=== PATIENT | male | born 1950 | race Caucasian/White ===

== ENCOUNTER 2019-04-01 00:08 | Outpatient (CLI) | payer MEDICARE, OTHER ==
[2019-04-01 14:15] LABS: Bacteria/HPF None Seen HPF (None Seen); Hyaline Casts/LPF NONE SEEN LPF (0-3 Hyaline); RBC/HPF None Seen HPF (0-3); Squamous Epithelial 0-3 HPF (0-3); WBC/HPF None Seen HPF (0-3)
== END 2019-04-01 00:09 | disposition home or self-care (01) ==
LOC: LABBT 00:08
PROVIDERS: ATTEND Orthopaedic Surgery
DX: Z01.818 Encounter for other preprocedural examination (principal); M17.11 Unilateral primary osteoarthritis, right knee
CPT/HCPCS: 81015; 87081; 93005; 93010

== ENCOUNTER 2019-04-08 06:18 | Inpatient (IN) | payer MEDICARE, OTHER ==
[2019-04-01 13:33] VITALS: BMI 25.8
[2019-04-01 14:09] LABS: #Basophils 0.1 thou/uL (0.0-0.2); #Eosinphils 0.4 thou/uL (0.0-0.7); #Lymphocytes 2.1 thou/uL (1.20-3.40); #Monocytes 0.6 thou/uL (0.11-0.59); #Neutrophils 4.5 thou/uL (1.40-6.50); %Basophils 1.2 % (0.0-1.0); %Eosinophils 5.3 % (0.0-10.0); %Lymphocytes 27.3 % (21.0-51.0); %Monocytes 7.6 % (0.0-10.0); %Neutrophils 58.6 % (42.0-75.0); Hemoglobin 15.7 g/dL (14.0-18.0); Mean Corpuscular HGB CONC 33.3 g/dL (32.0-36.0); Mean Corpuscular Volume 95.9 fL (78.0-98.0); Mean Platelet Volume 7.7 fL (7.4-10.4); Platelet Count 172 thou/uL (130-400); RBC Distribution Width 12.8 % (11.5-14.5); White Blood Cell (WBC) Count 7.7 thou/uL (4.8-10.8)
[2019-04-01 14:16] LABS: Prothrombin Time 13.1 SEC (12.0-14.7)
[2019-04-01 14:30] LABS: Anion Gap 13 mmol/L (10-20); BUN (Urea Nitrogen) 13 mg/dL (8.4-25.7); Calc. Creatinine Clearance 0 mL/min (70-130); Calcium 9.8 mg/dL (7.8-10.44); Carbon Dioxide 27 mmol/L (23-31); Chloride 105 mmol/L (98-107); Estimated GFR-MDRD 86; Glucose 81 mg/dL (80-115); Potassium 3.9 mmol/L (3.5-5.1); Sodium 141 mmol/L (136-145)
[2019-04-08] MEDS ORDERED: Midazolam HCl 2 mg/2 ml Vial ONE (07:03)
[2019-04-08] MEDS ORDERED: Fentanyl 100 MCG/2 ML VIAL ONE ×4 (07:03→11:41)
[2019-04-08] MEDS ORDERED: Tranexamic Acid 1,000 MG/10 ML VIAL ONE ×2 (07:05→10:46)
[2019-04-08] MEDS ORDERED: Sodium Chloride 0.9% 100 ML ONE (07:05)
[2019-04-08] MEDS ORDERED: Vancomycin HCl 1.5 GM in Sodium Chloride 0.9% 250 ML 300 ML IVPB SCH ×2 (07:15→18:00)
[2019-04-08] MEDS ORDERED: Promethazine HCl 25 MG/ML VIAL IM PRN ×4 (07:50→12:11)
[2019-04-08] MEDS ORDERED: Ropivacaine HCl/PF 250 ML in Premix Bag 1 BAG NERVE BLCK SCH (07:50)
[2019-04-08] MEDS ORDERED: HYDROcodone/Acetaminophen 10/325 mg Tablet PO PRN ×2 (07:50)
[2019-04-08] MEDS ORDERED: Fentanyl 100 MCG/2 ML VIAL IV PRN (07:50)
[2019-04-08] MEDS ORDERED: Zolpidem Tartrate 5 MG TAB PO PRN ×3 (07:50→12:11)
[2019-04-08] MEDS ORDERED: traMADol HCl 50 MG TAB PO PRN ×2 (07:50)
[2019-04-08] MEDS ORDERED: Ondansetron PF 4 MG/2 ML Vial IVP PRN ×3 (07:50→12:11)
[2019-04-08] MEDS ORDERED: Bupivacaine PF 0.5% 30 ML VIAL ONE (08:09)
[2019-04-08] MEDS ORDERED: diphenhydrAMINE 25 MG CAP PO PRN ×2 (10:16→12:11)
[2019-04-08] MEDS ORDERED: Acetaminophen 325 MG TAB PO PRN (10:16)
[2019-04-08] MEDS ORDERED: Tranexamic Acid 1,000 MG in Sodium Chloride 0.9% 100 ML IVPB SCH (10:30)
[2019-04-08] MEDS ORDERED: Morphine Sulfate 2 MG/ML SYRINGE SLOW IVP PRN (10:32)
[2019-04-08] MEDS ORDERED: PACU-Morphine 4MG/ML VIAL SLOW IVP PRN (10:32)
[2019-04-08] MEDS ORDERED: Promethazine HCl 25 MG/ML VIAL SLOW IVP PRN (10:32)
[2019-04-08] MEDS ORDERED: HYDROmorphone 2 MG/ML VIAL SLOW IVP PRN (10:32)
[2019-04-08] MEDS ORDERED: Ondansetron HCl/PF 4 MG/2 ML Vial IVP PRN (10:32)
[2019-04-08] MEDS ORDERED: Meperidine HCl/PF 25 MG/ML VIAL SLOW IVP PRN (10:32)
--- NOTE | 2019-04-08 10:44 | RAD ---
EXAM: 2 views of the right knee HISTORY: Knee pain COMPARISON: None FINDINGS: A small knee effusion is seen. The patient is status post right knee arthroplasty without a pparent hardware lucency or fracture. Air in the soft tissues is from recent surgery. IMPRESSION: Status post right knee arthroplasty without evidence of complication.
[2019-04-08] MEDS ORDERED: Ketorolac Tromethamine 30 MG/ML VIAL ONE (11:16)
[2019-04-08] MEDS ORDERED: diphenhydrAMINE 50 MG/ML VIAL IM PRN (12:11)
[2019-04-08] MEDS ORDERED: fentaNYL Citrate/PF 2,000 MCG in Sodium Chloride 0.9% 60 ML IV PRN (12:11)
[2019-04-08] MEDS ORDERED: Naloxone HCl 0.4 mg/ml Vial IV PRN (12:11)
[2019-04-08] MEDS ORDERED: diphenhydrAMINE 50 MG/ML VIAL IVP PRN (12:11)
[2019-04-08] MEDS ORDERED: Communication Order-Pharmacy FS SCH (12:15)
--- NOTE | 2019-04-08 12:25 | OP ---
DATE OF PROCEDURE: 04/08/2019 PREOPERATIVE DIAGNOSIS: Right knee rheumatoid arthritis. POSTOPERATIVE DIAGNOSIS: Right knee rheumatoid arthritis. PROCEDURE PERFORMED: Right total knee replacement using [employer] pinless navigation. NETWORK SUPPORT ADMINISTRATOR: Lalit Li MD and Eduin Rowley PA-C. COMPLICATIONS: None. The patient had general anesthetic as well as a block. IMPLANTS: [employer] Triathlon knee system. We used a size 6 posterior-stabilized femur. We used a size 5 primary tibial base plate. We used a 5 x 16 mm posterior-stabilized tibial insert and a 35 x 10 asymmetric X3 patella. He did go to recovery room in stable condition. INDICATIONS: This is a 68-year-old male, who has a rheumatoid arthritis, on multiple medications for this. At this time, his pain and discomfort has gotten so great, he wished to have his knee replaced. DESCRIPTION OF PROCEDURE: After all appropriate consent forms were explained and signed, he was taken back to the operating room, and at this time, he was given general anesthetic. Once the level of anesthesia was appropriate, a tourniquet was placed on the right thigh and leg was then prepped draped in standard surgical fashion. Limb was exsanguinated and tourniquet taken up to 300 mmHg. Midline incision was made with a 10-blade down through the skin. Bovie was used to coagulate any brisk venous bleeding. New blade was used to make a medial parapatellar arthrotomy. At this time, medial tissue release was done of the proximal tibia. Excess fat pad was removed, and at this time, a copious amount of synovium was removed. Hemostasis was meticulously achieved at this time. A large bony osteophytes were removed with a rongeur, and at this time, the knee was flexed up. The guide was applied. The femur was navigated and a femoral cut was made in 5 degrees of flexion with 9 and 8 mm being taken off the distal femoral condyles respectively. Once this was done, the sizing jig was placed in 3 degrees of external rotation and pinned in place. Size 6 femur was decided upon. A 4-in-1 cutting blocks were applied and pinned. Anterior-posterior chamfer cuts were made. All excess bone spurs were removed at this time. We then turned our attention to the tibia. The posterior PCL retractor was placed behind the tibia to expose the tibia. We then pinned the navigation guide in place and navigated our tibia. The cutting guide was set so that we took 11 mm off the lateral tibial plateau and more -6 mm from our deepest point medially. At this time, the saw cut was performed. We then removed the medial osteophytes off the tibia, essentially removing nearly all the low spot that was not taken off with a saw. We then placed our spreaders, removing all remaining meniscal tissue and a curved osteotome was used to remove posterior osteophytes off the femur. Once this was done, we did place a size 6 and decided this was too big placing a size 5. We were able to place the tibial tray directly in the central portion of the tibia with everything supported. Therefore, this was pinned in place using a long alignment han to achieve correct rotation, and we then trialed our different plastics. At this time, 13 plastic was felt to be a little bit too loose, but we decided we would also need to perform a posterior-stabilized femur. Therefore, at this time, the posterior-stabilized guide was applied to the femur, centralizing this on the cut femur. This was pinned in place. The osteotome was placed through the guide and a saw was used to saw medial and lateral to make our box. The bone and soft tissue were removed, and at this time, a trial size 6 PS femur was placed and size 5 tibial base plate was already pinned in place and we decided upon a 16 mm plastic, which gave us full extension and excellent stability through range of motion. At this time, two towel clips and a saw were used to cut our patella. A 35 x 10 mm asymmetric patella was decided upon. The holes were drilled. We then trialed this. Our patella sat nicely in the trochlear groove through full range of motion. At this time, we then removed our patella, removed our femur. We then punched our tibia. We then thoroughly irrigated and dried the knee joint while the cement was mixed on the back table. We then applied our tibial base plate, our femoral prosthesis, and our 16 mm PS plastic in that order. The knee was put out in full extension while the cement dried. All excess bone cement was removed. A 35 x 10 patella was then cemented in place, again was held in place with all excess cement being removed. Once this was done, we thoroughly irrigated and dried our knee. We then placed multiple #2 Vicryl sutures, followed by a running Stratafix. We then used 2-0 and 3-0 Stratafix, followed by Surgicel skin glue on top of the skin. Bulky sterile dressing was then applied. The patient was then awakened and taken to recovery room in stable condition. All counts were correct at the end of the case, and he did receive preoperative IV antibiotics. Job ID: [id number]
[2019-04-08] MEDS ORDERED: hydrALAZINE 20 MG/ML VIAL SLOW IVP PRN (15:56)
[2019-04-08] MEDS: Sodium Chloride 0.9% 1,000 ML IV SCH ×2 (16:09→18:35)
[2019-04-08] MEDS: Ketorolac Tromethamine 30 MG/ML VIAL IVP SCH ×3 (16:10→23:22)
[2019-04-08] MEDS: CEFAZOLIN 2 GM in Premix Bag 1 BAG IVPB SCH ×2 (16:12→23:22)
[2019-04-08] MEDS ORDERED: Ropivacaine 0.5% HCl/PF (150 MG/30 ML VIAL) ONE (16:25)
[2019-04-08] MEDS ORDERED: Ropivacaine 0.2% HCl/PF (40 MG/20 ML VIAL) ONE (16:25)
[2019-04-08] MEDS ORDERED: Lidocaine 1% PF 5 ML VIAL ONE (17:16)
[2019-04-08] MEDS ORDERED: Dexamethasone 20 MG/5 ML VIAL ONE (17:16)
[2019-04-08] MEDS ORDERED: PROPOFOL 200 MG/20 ML VIAL ONE (17:16)
[2019-04-08] MEDS ORDERED: Ondansetron PF 4 MG/2 ML Vial ONE (17:16)
[2019-04-08] MEDS ORDERED: ePHEDrine 50 MG/ML VIAL ONE (17:16)
--- NOTE | 2019-04-08 17:52 | CON ---
DATE OF CONSULTATION: 04/08/2019 PRIMARY CARE PROVIDER: Dr. Mehrdad Prater. REASON FOR CONSULTATION: Management of medical comorbidities. HISTORY OF PRESENT ILLNESS: Mr. Carrasco is a pleasant 68-year-old gentleman, who was seen at [facility] on April 08, 2019. Earlier today, he underwent right total knee replacement for right knee rheumatoid arthritis. He was seen by hospitalist service for management of medical comorbidities. He denies any chest pain or shortness of breath. He denies any fevers or chills. He denies any nausea or vomiting. He reports that the pain in the right knee is better. REVIEW OF SYSTEMS: All other systems reviewed and found to be negative. PAST MEDICAL HISTORY: Hypertension, arthritis, anxiety, and depression. PAST SURGICAL HISTORY: Right total knee replacement on April 08, 2019. SOCIAL HISTORY: The patient denies any history of tobacco use, alcohol use, or recreational drug use. FAMILY HISTORY: No family history of coronary artery disease. ALLERGIES: NO KNOWN DRUG ALLERGIES. HOME MEDICATIONS: 1. Abilify 5 mg daily. 2. Vitamin D3 5000 units daily. 3. Hydroxyzine 50 mg as needed. 4. Lisinopril 10 mg daily. PHYSICAL EXAMINATION: GENERAL: On examination, Mr. Carrasco is awake and alert, not in acute distress. VITAL SIGNS: Stable. EYES: No scleral icterus, no conjunctival pallor. ENT: Moist mucosal membranes. No oropharyngeal erythema or exudates. NECK: Supple, nontender, trachea is midline. RESPIRATORY: Accessory muscles of breathing are not active. Chest wall movements are symmetric bilaterally. LUNGS: Clear to auscultation without wheeze, rhonchi, or crepitations. CARDIOVASCULAR: S1 and S2 are heard, regular. Peripheral pulses palpable. ABDOMEN: Soft, nontender, bowel sounds heard. NEUROLOGIC: Cranial nerves 2 through 12 are intact. MUSCULOSKELETAL: Rheumatoid arthritic changes in the hands. Status post right knee surgery. SKIN: No rashes or subcutaneous nodules. LYMPHATIC: No cervical lymphadenopathy. PSYCHIATRIC: Normal mood, normal affect, the patient is oriented to person, place, and time. LABORATORY DATA: Mr. Medleys labs and investigations were reviewed. On April 01, 2019, he had an unremarkable CBC, INR 1.0, and normal chem 7. ASSESSMENT AND PLAN: Mr. Carrasco is a pleasant 68-year-old gentleman, who was seen at [facility] on April 08, 2019. His problem list includes: 1. Hypertension: Mr. Carrasco has a history of hypertension. We will continue lisinopril. We will add p.r.n. hydralazine for blood pressure spikes. 2. Depression: Mild, stable, continue Abilify. 3. Arthritis: Status post right knee surgery. 4. Pain management and DVT prophylaxis per Orthopedic Surgery Service. Many thanks for allowing me to participate in the patient's care. Please feel free to contact me with any questions or concerns. LEVEL OF RISK: Moderate. LEVEL OF COMPLEXITY: Moderate. Job ID: [id number]
[2019-04-08] MEDS: Aspirin 81 mg Enteric Coated Tablet PO SCH (21:09)
[2019-04-09 05:26] LABS: Hemoglobin 12.1 g/dL (14.0-18.0); Mean Corpuscular HGB CONC 33.7 g/dL (32.0-36.0); Mean Corpuscular Hemoglobin 32.4 pg (27.0-31.0); Mean Corpuscular Volume 95.9 fL (78.0-98.0); Mean Platelet Volume 7.7 fL (7.4-10.4); Platelet Count 134 thou/uL (130-400); RBC Distribution Width 12.2 % (11.5-14.5); Red Blood Cell (RBC) Count 3.74 mill/uL (4.70-6.10); White Blood Cell (WBC) Count 9.5 thou/uL (4.8-10.8)
[2019-04-09] MEDS: Ketorolac Tromethamine 30 MG/ML VIAL IVP SCH ×4 (06:28→23:30)
[2019-04-09] MEDS: Sodium Chloride 0.9% 1,000 ML IV SCH ×2 (06:46→17:15)
[2019-04-09] MEDS: Aripiprazole 10 MG TAB PO SCH (08:50)
[2019-04-09] MEDS: Ferrous Gluconate 324 MG TAB PO SCH ×2 (08:51→20:55)
[2019-04-09] MEDS: Multivitamin W/ Minerals 1 TAB PO SCH (08:51)
[2019-04-09] MEDS: Senokot S 8.6-50 MG TAB PO SCH ×2 (08:51→20:56)
[2019-04-09] MEDS: Lisinopril 10 MG TAB PO SCH (08:51)
[2019-04-09] MEDS: Aspirin 81 mg Enteric Coated Tablet PO SCH ×2 (08:52→20:55)
--- NOTE | 2019-04-09 13:28 | PDOC.PN ---
- Subjective Encounter Start Date: 04/09/19 Encounter Start Time: 12:00 Subjective: no sob or chest pain - Objective MAR Reviewed: Yes Vital Signs & Weight: Vital Signs (12 hours) Temp Pulse Resp BP BP Pulse Ox 04/09/19 11:37 99.1 F 76 16 133/73 96 04/09/19 08:38 98.4 F 87 16 138/83 97 04/09/19 05:01 97.7 F 77 20 146/90 H 95 Weight Admit Weight 180 lb Weight 180 lb Result Diagrams: 04/09/19 04:43 04/01/19 13:02 Phys Exam - Physical Examination HEENT: PERRLA, moist MMs Neck: no JVD, supple Respiratory: no wheezing, no rales Cardiovascular: RRR, no significant murmur Gastrointestinal: soft, non-tender, positive bowel sounds Musculoskeletal: no edema, pulses present has wasting of small muscles and deformity of fingers due to RA Neurological: non-focal, moves all 4 limbs Psychiatric: normal affect, A&O x 3 Dx/Plan (1) Rheumatoid arthritis Code(s): M06.9 - RHEUMATOID ARTHRITIS, UNSPECIFIED Status: Chronic Qualifiers: Rheumatoid arthritis location: multiple sites Rheumatoid factor presence: unspecified presence Qualified Code(s): M06.9 - Rheumatoid arthritis, unspecified (2) Status post total knee replacement, right Code(s): Z96.651 - PRESENCE OF RIGHT ARTIFICIAL KNEE JOINT Status: Acute Comment: 04/08/2019 (3) HTN (hypertension) Code(s): I10 - ESSENTIAL (PRIMARY) HYPERTENSION Status: Chronic Qualifiers: Hypertension type: essential hypertension Qualified Code(s): I10 - Essential (primary) hypertension (4) Anxiety disorder Code(s): F41.9 - ANXIETY DISORDER, UNSPECIFIED Status: Chronic Qualifiers: Anxiety disorder type: generalized anxiety disorder Qualified Code(s): F41.1 - Generalized anxiety disorder (5) Bipolar disorder Code(s): F31.9 - BIPOLAR DISORDER, UNSPECIFIED Status: Chronic Qualifiers: Active/Remission status: remission status unspecified Qualified Code(s): F31.9 - Bipolar disorder, unspecified Comment: on abilify - Plan hemostable -: to mobilize with PT, might need rehab depending on how he does with PT -: continue asp bid, lisinopril, abilify, iron -: ropivacaine nr block, fentanyl, toradol prn -: will f/u * . Review of Systems - Medications/Allergies Allergies/Adverse Reactions: Allergies Allergy/AdvReac Type Severity Reaction Status Date / Time No Known Allergies Allergy Unverified 04/01/19 13:33 Medications: Current Medications Acetaminophen (Tylenol) 650 mg PO Q4H PRN PRN Reason: Headache/Fever or Pain Hydrocodone Bitart/Acetaminophen ([place] 10/325) 1 tab PO Q4H PRN PRN Reason: Pain (1-3) Hydrocodone Bitart/Acetaminophen ([place] 10/325) 2 tab PO Q4H PRN PRN Reason: PAIN (4-6) Aripiprazole (Abilify) 5 mg PO DAILY [facility] Last Admin: 04/09/19 08:50 Dose: 5 mg Aspirin (Ecotrin) 81 mg PO BID [facility] Last Admin: 04/09/19 08:52 Dose: 81 mg Cholecalciferol (Vitamin D3) 5,000 units PO DAILY [facility] Last Admin: 04/09/19 08:51 Dose: 5,000 units Diphenhydramine HCl (Benadryl) 25 mg IVP Q3H PRN PRN Reason: Itching Diphenhydramine HCl (Benadryl) 25 mg PO Q3H PRN PRN Reason: Itching Diphenhydramine HCl (Benadryl) 25 mg IM Q3H PRN PRN Reason: Itching Fentanyl (Sublimaze) 50 mcg IV Q1H PRN PRN Reason: BREAKTHROUGH PAIN Ferrous Gluconate (Fergon) 324 mg PO BID [facility] Last Admin: 04/09/19 08:51 Dose: 324 mg Hydralazine HCl (Apresoline) 10 mg SLOW IVP Q6H PRN PRN Reason: SBP Greater Than 170 Hydroxyzine HCl (Atarax) 25 mg PO TIDPRN PRN PRN Reason: Anxiety Ropivacaine 250 ml/ Device 250 mls @ 0 mls/hr NERVE BLCK INF [facility] Last Admin: 04/09/19 11:59 Dose: 250 mls Sodium Chloride (Normal Saline 0.9%) 1,000 mls @ 100 mls/hr IV .Q10H [facility] Last Admin: 04/09/19 06:46 Dose: Not Given Fentanyl Citrate 2,000 mcg/ (Sodium Chloride) 100 mls @ 0 mls/hr IV INF PRN PRN Reason: Pain Iron/Minerals/Multivitamins (Theragran M) 1 tab PO DAILY [facility] Last Admin: 04/09/19 08:51 Dose: 1 tab Ketorolac Tromethamine (Toradol) 15 mg IVP Q6HR [facility] Stop: 04/10/19 06:01 Last Admin: 04/09/19 12:05 Dose: 15 mg Lisinopril (Zestril) 10 mg PO DAILY [facility] Last Admin: 04/09/19 08:51 Dose: 10 mg Miscellaneous Information (Communication Order-Pharmacy) 1 each FS ONE [facility] Stop: 04/11/19 12:16 Naloxone HCl (Narcan) 0.2 mg IV Q5MIN PRN PRN Reason: Opiate Reversal Ondansetron HCl (Zofran) 4 mg IVP Q6H PRN PRN Reason: Nausea/Vomiting Promethazine HCl (Phenergan) 12.5 mg IM Q4H PRN PRN Reason: Nausea/Vomiting Senna/Docusate Sodium (Senokot S) 2 tab PO BID [facility] Last Admin: 04/09/19 08:51 Dose: 2 tab Sodium Chloride (Flush - Normal Saline) 10 ml IVF Q12HR [facility] Last Admin: 04/09/19 08:52 Dose: Not Given Sodium Chloride (Flush - Normal Saline) 10 ml IVF PRN PRN PRN Reason: Saline Flush Tramadol HCl (Ultram) 50 mg PO Q6H PRN PRN Reason: Mild Pain (1-3) Tramadol HCl (Ultram) 100 mg PO Q6H PRN PRN Reason: Moderate Pain 4-6 Zolpidem Tartrate (Ambien) 5 mg PO HSPRN PRN PRN Reason: Insomnia
[2019-04-09] MEDS: hydrOXYzine 25 MG TAB PO PRN (23:40)
[2019-04-10] MEDS: Sodium Chloride 0.9% 1,000 ML IV SCH ×3 (02:44→23:14)
[2019-04-10 04:37] LABS: Hemoglobin 11.5 g/dL (14.0-18.0); Mean Corpuscular HGB CONC 33.6 g/dL (32.0-36.0); Mean Corpuscular Hemoglobin 32.1 pg (27.0-31.0); Mean Corpuscular Volume 95.8 fL (78.0-98.0); Mean Platelet Volume 7.9 fL (7.4-10.4); Platelet Count 132 thou/uL (130-400); RBC Distribution Width 12.3 % (11.5-14.5); Red Blood Cell (RBC) Count 3.59 mill/uL (4.70-6.10); White Blood Cell (WBC) Count 9.2 thou/uL (4.8-10.8)
[2019-04-10] MEDS: Ketorolac Tromethamine 30 MG/ML VIAL IVP SCH (06:39)
[2019-04-10] MEDS: Ferrous Gluconate 324 MG TAB PO SCH ×2 (08:34→20:53)
[2019-04-10] MEDS: Lisinopril 10 MG TAB PO SCH (08:34)
[2019-04-10] MEDS: Senokot S 8.6-50 MG TAB PO SCH ×2 (08:34→23:13)
[2019-04-10] MEDS: Multivitamin W/ Minerals 1 TAB PO SCH (08:34)
[2019-04-10] MEDS: Aspirin 81 mg Enteric Coated Tablet PO SCH ×2 (08:35→20:53)
[2019-04-10] MEDS: Aripiprazole 10 MG TAB PO SCH (08:35)
[2019-04-10] MEDS ORDERED: Ropivacaine 0.2% 550 ML 550 ML NERVE BLCK SCH (11:17)
--- NOTE | 2019-04-10 15:08 | PDOC.PN ---
- Subjective Encounter Start Date: 04/10/19 Encounter Start Time: 07:20 Pt seen for followup re: hypertension. Denies chest pain, shortness of breath, fevers or chills. - Objective MAR Reviewed: Yes Vital Signs & Weight: Vital Signs (12 hours) Temp Pulse Resp BP BP Pulse Ox 04/10/19 11:20 98.1 F 83 16 139/84 98 04/10/19 08:34 173/92 H 04/10/19 08:00 95 04/10/19 07:20 99.1 F 87 16 173/92 H 95 04/10/19 04:53 98.2 F 90 15 164/91 H 95 Weight Admit Weight 180 lb Weight 180 lb I&O: 04/09/19 04/10/19 04/11/19 06:59 06:59 06:59 Intake Total 1750 Output Total 350 Balance 1400 Result Diagrams: 04/10/19 03:52 04/01/19 13:02 Additional Labs: Labs reviewed by me Phys Exam - Physical Examination Constitutional: NAD HEENT: moist MMs Neck: supple Respiratory: clear to auscultation bilateral Cardiovascular: RRR Gastrointestinal: soft s/p R knee surgery Neurological: moves all 4 limbs Psychiatric: normal affect Dx/Plan (1) HTN (hypertension) Code(s): I10 - ESSENTIAL (PRIMARY) HYPERTENSION Status: Chronic Qualifiers: Hypertension type: essential hypertension Qualified Code(s): I10 - Essential (primary) hypertension Comment: continue PRN IV hydralazine (2) Bipolar disorder Code(s): F31.9 - BIPOLAR DISORDER, UNSPECIFIED Status: Chronic Qualifiers: Active/Remission status: remission status unspecified Qualified Code(s): F31.9 - Bipolar disorder, unspecified Comment: continue abilify (3) Status post total knee replacement, right Code(s): Z96.651 - PRESENCE OF RIGHT ARTIFICIAL KNEE JOINT Status: Acute Comment: s/p surgery on 04/08/2019 - Plan * . Review of Systems - Review of Systems Cardiovascular: negative: chest pain, palpitations, orthopnea, paroxysmal nocturnal dyspnea, edema, light headedness Gastrointestinal: negative: Nausea, Vomiting, Abdominal Pain, Diarrhea, Constipation, Melena, Hematochezia - Medications/Allergies Allergies/Adverse Reactions: Allergies Allergy/AdvReac Type Severity Reaction Status Date / Time No Known Allergies Allergy Unverified 04/01/19 13:33 Medications: Current Medications Acetaminophen (Tylenol) 650 mg PO Q4H PRN PRN Reason: Headache/Fever or Pain Hydrocodone Bitart/Acetaminophen ([place] 10/325) 1 tab PO Q4H PRN PRN Reason: Pain (1-3) Stop: 04/11/19 08:59 Hydrocodone Bitart/Acetaminophen ([place] 10/325) 2 tab PO Q4H PRN PRN Reason: PAIN (4-6) Stop: 04/11/19 08:59 Hydrocodone Bitart/Acetaminophen ([place] 10/325) 1 tab PO Q4H PRN PRN Reason: Pain (2-4) Hydrocodone Bitart/Acetaminophen ([place] 10/325) 2 tab PO Q4H PRN PRN Reason: PAIN (5-10) Aripiprazole (Abilify) 5 mg PO DAILY [facility] Last Admin: 04/10/19 08:35 Dose: 5 mg Aspirin (Ecotrin) 81 mg PO BID [facility] Last Admin: 04/10/19 08:35 Dose: 81 mg Cholecalciferol (Vitamin D3) 5,000 units PO DAILY [facility] Last Admin: 04/10/19 08:33 Dose: 5,000 units Diphenhydramine HCl (Benadryl) 25 mg IVP Q3H PRN PRN Reason: Itching Diphenhydramine HCl (Benadryl) 25 mg PO Q3H PRN PRN Reason: Itching Diphenhydramine HCl (Benadryl) 25 mg IM Q3H PRN PRN Reason: Itching Fentanyl (Sublimaze) 50 mcg IV Q1H PRN PRN Reason: BREAKTHROUGH PAIN Ferrous Gluconate (Fergon) 324 mg PO BID [facility] Last Admin: 04/10/19 08:34 Dose: 324 mg Hydralazine HCl (Apresoline) 10 mg SLOW IVP Q6H PRN PRN Reason: SBP Greater Than 170 Hydroxyzine HCl (Atarax) 25 mg PO TIDPRN PRN PRN Reason: Anxiety Last Admin: 04/09/19 23:40 Dose: 25 mg Ropivacaine 250 ml/ Device 250 mls @ 0 mls/hr NERVE BLCK INF [facility] Last Admin: 04/09/19 11:59 Dose: 250 mls Sodium Chloride (Normal Saline 0.9%) 1,000 mls @ 100 mls/hr IV .Q10H [facility] Last Admin: 04/10/19 08:39 Dose: Not Given Fentanyl Citrate 2,000 mcg/ (Sodium Chloride) 100 mls @ 0 mls/hr IV INF PRN PRN Reason: Pain Stop: 04/11/19 09:00 Last Admin: 04/09/19 18:04 Dose: 100 mls Ropivacaine (Ropivacaine 0.2% 550 Ml) 550 mls @ 10 mls/hr NERVE BLCK INF [facility] Last Admin: 04/10/19 13:07 Dose: 550 mls Iron/Minerals/Multivitamins (Theragran M) 1 tab PO DAILY [facility] Last Admin: 04/10/19 08:34 Dose: 1 tab Lisinopril (Zestril) 10 mg PO DAILY [facility] Last Admin: 04/10/19 08:34 Dose: 10 mg Miscellaneous Information (Communication Order-Pharmacy) 1 each FS ONE [facility] Stop: 04/11/19 12:16 Naloxone HCl (Narcan) 0.2 mg IV Q5MIN PRN PRN Reason: Opiate Reversal Ondansetron HCl (Zofran) 4 mg IVP Q6H PRN PRN Reason: Nausea/Vomiting Promethazine HCl (Phenergan) 12.5 mg IM Q4H PRN PRN Reason: Nausea/Vomiting Senna/Docusate Sodium (Senokot S) 2 tab PO BID [facility] Last Admin: 04/10/19 08:34 Dose: Not Given Sodium Chloride (Flush - Normal Saline) 10 ml IVF Q12HR [facility] Last Admin: 04/10/19 08:39 Dose: Not Given Sodium Chloride (Flush - Normal Saline) 10 ml IVF PRN PRN PRN Reason: Saline Flush Tramadol HCl (Ultram) 50 mg PO Q6H PRN PRN Reason: Mild Pain (1-3) Stop: 04/11/19 08:59 Tramadol HCl (Ultram) 100 mg PO Q6H PRN PRN Reason: Moderate Pain 4-6 Stop: 04/11/19 08:59 Tramadol HCl (Ultram) 50 mg PO Q6H PRN PRN Reason: Mild Pain (2-4) Tramadol HCl (Ultram) 100 mg PO Q6H PRN PRN Reason: Moderate Pain 5-10 Zolpidem Tartrate (Ambien) 5 mg PO HSPRN PRN PRN Reason: Insomnia
[2019-04-11] MEDS: hydrOXYzine 25 MG TAB PO PRN (01:27)
[2019-04-11 04:56] LABS: Hemoglobin 10.9 g/dL (14.0-18.0); Mean Corpuscular HGB CONC 33.8 g/dL (32.0-36.0); Mean Corpuscular Hemoglobin 32.2 pg (27.0-31.0); Mean Corpuscular Volume 95.5 fL (78.0-98.0); Mean Platelet Volume 7.7 fL (7.4-10.4); Platelet Count 139 thou/uL (130-400); RBC Distribution Width 12.2 % (11.5-14.5); Red Blood Cell (RBC) Count 3.38 mill/uL (4.70-6.10); White Blood Cell (WBC) Count 9.8 thou/uL (4.8-10.8)
[2019-04-11 08:28] VITALS: BP 136/82; TEMP 97.5
[2019-04-11] MEDS: Aripiprazole 10 MG TAB PO SCH (08:49)
[2019-04-11] MEDS: Ferrous Gluconate 324 MG TAB PO SCH (08:51)
[2019-04-11] MEDS: Aspirin 81 mg Enteric Coated Tablet PO SCH (08:51)
[2019-04-11] MEDS: Lisinopril 10 MG TAB PO SCH (08:51)
[2019-04-11] MEDS: Multivitamin W/ Minerals 1 TAB PO SCH (08:52)
[2019-04-11] MEDS: Senokot S 8.6-50 MG TAB PO SCH (08:52)
[2019-04-11] MEDS ORDERED: traMADol HCl 50 MG TAB PO PRN ×2 (09:00)
[2019-04-11] MEDS ORDERED: HYDROcodone/Acetaminophen 10/325 mg Tablet PO PRN ×2 (09:00)
[2019-04-11] MEDS: Sodium Chloride 0.9% 1,000 ML IV SCH (09:20)
[2019-04-11] MEDS ORDERED: Silver Sulfadiazine 1% Cream 50 GM JAR TOP SCH (21:00)
== END 2019-04-11 11:43 | disposition home or self-care (01) | DRG 470 ==
LOC: SDC 06:18 → SJJU 14:33
PROVIDERS: ADMIT Orthopaedic Surgery; ATTEND Orthopaedic Surgery
PROC: 0SRC0J9 Replacement of Right Knee Joint with Synthetic Substitute, Cemented, Open Approach (ICD-10-PCS; principal; 2019-04-08)
DX: M06.9 Rheumatoid arthritis, unspecified (principal); I10 Essential (primary) hypertension; F41.9 Anxiety disorder, unspecified; F32.9 Major depressive disorder, single episode, unspecified; Z79.899 Other long term (current) drug therapy
CPT/HCPCS: 36415; 80048; 85025; 85027; 85610; 86850; 86900; 86901; A4306; C1713; C1776; J0131; J0690; J1100; J1885; J2001; J2250; J2405; J2704; J2795; J3010; J3370; J3490; J7050; S0020